=== PATIENT | female | born 1975 | race African-American/Black ===

== ENCOUNTER 2020-07-15 10:58 | Emergency (ER) | payer SELFPAY ==
[~2020-07-15] VITALS: Ht 170.2 cm; Wt 65.9 kg
[2020-07-15 11:36] LABS: BILIRUBIN,URINE NEGATIVE (NEG); CLARITY,URINE CLEAR; COLOR,URINE YELLOW; NITRITE,URINE NEGATIVE (NEG); PH,URINE 5.5 (<5.0-8.0); PROTEIN,URINE NEGATIVE (NEG-TRACE); UROBILINOGEN,URINE 0.2 mg/dL (0.2 mg/dL)
[2020-07-15 11:52] LABS: BACTERIA,URINE FEW /HPF (0-FEW)
[2020-07-15 11:53] LABS: TRICHOMONAS,URINE PRESENT
[2020-07-15 11:53] LABS: BASO % 0 % (0-3); EOS # 0.1 x10^3/uL (0.0-0.7); EOS % 1 % (0-3); HEMATOCRIT 43.3 % (36.0-47.0); HEMOGLOBIN 14.8 g/dL (12.0-15.5); LYMPH # 2.9 x10^3/uL (1.0-4.8); LYMPH % 29 % (24-48); MEAN CORPUSCULAR HEMOGLOBIN 33 pg (25-35); MEAN CORPUSCULAR HGB CONC 34 g/dL (31-37); MEAN CORPUSCULAR VOLUME 95 fL (79-100); MONO # 0.8 x10^3/uL (0.0-1.1); MONO % 8 % (0-9); NEUT # 6.2 x10^3/uL (1.8-7.7); NEUT % 61 % (31-73); PLATELET COUNT 239 x10^3/uL (140-400); RED BLOOD COUNT 4.54 x10^6/uL (3.50-5.40); RED CELL DISTRIBUTION WIDTH 13.5 % (11.5-14.5); WHITE BLOOD COUNT 10.1 x10^3/uL (4.0-11.0)
[2020-07-15 11:54] LABS: CALCIUM 9.2 mg/dL (8.5-10.1); CREATININE 0.7 mg/dL (0.6-1.0); GFR 110.5; POTASSIUM 3.8 mmol/L (3.5-5.1)
[2020-07-15 12:00] LABS: ALBUMIN/GLOBULIN RATIO 0.9 (1.0-1.7); MAGNESIUM 2.2 mg/dL (1.8-2.4); TOTAL BILIRUBIN 0.4 mg/dL (0.2-1.0); TOTAL PROTEIN 8.5 g/dL (6.4-8.2)
[2020-07-15] MEDS ORDERED: fentaNYL PF VIAL 100 MCG/2 ML VIAL IV ONE (12:30)
[2020-07-15] MEDS ORDERED: LIDO:MAALOX 1:1 20 ML SINGLE DOSE. SWSW ONE (12:30)
[2020-07-15] MEDS ORDERED: IV NORMAL SALINE 1000ML BAG 1,000 ML IV ONE (12:30)
[2020-07-15] MEDS ORDERED: ONDANSETRON PF 4 MG/2 ML VIAL. IV ONE (12:30)
[2020-07-15] MEDS ORDERED: hydrALAZINE 20 MG/ML VIAL. ONE (13:10)
[2020-07-15] MEDS ORDERED: LABETALOL 20 MG/4 ML DISP.SYRIN. IVP ONE (13:15)
--- NOTE | 2020-07-15 13:39 | RAD ---
ABDOMEN LTD History: Reason: upper abd pain / Spl. Instructions: / History: Comparison: None. Technique: Transabdominal ultrasound images are obtained of the right upper quadrant. Findings: Visualized pancreas is unremarkable. Liver is normal in echogenicity. Right hepatic lobe measures 17.0 cm. Portal flow is hepatopedal. Gallbladder has an unremarkable appearance. There is a loop of bowel adjacent to the gallbladder with gas degrading adjacent artifact. Common bile duct measures 3 mm in diameter. The right kidney measures 10.9 x 4.9 x 3.9 cm. No hydronephrosis. Visualized portions of the aorta and IVC have normal caliber. IMPRESSION: 1. Unremarkable right upper quadrant ultrasound. Electronically signed by: Mahesh Rasheed DO (07/15/2020 1:36 PM) [id number]
[2020-07-15] MEDS ORDERED: AZITHROMYCIN 250 MG TABLET. PO ONE (14:00)
[2020-07-15] MEDS ORDERED: cefTRIAXone IV Push 1 GM VIAL. IVP ONE (14:00)
[2020-07-15 14:25] VITALS: BP 236/102
[2020-07-15] MEDS ORDERED: CEPH-264 PO (14:29)
[2020-07-15] MEDS ORDERED: METR500T PO (14:29)
--- NOTE | 2020-07-15 14:29 | PHYS DOC ---
Past Medical History Past Medical History: Endometriosis Additional Past Medical Histor: PCOS Past Surgical History: Hysterectomy Smoking Status: Never Smoker Alcohol Use: Rarely General Adult EDM: Chief Complaint: ABDOMINAL PAIN HPI: HPI: Patient is a 44 year old AA female who presents emergency department with complaints of upper abdominal pain that is worse after eating for the last 7 days. She reports that the pain has increased over the last 2 days she has been under a lot of stress recently because her has chronic illnesses and has been in the hospital. She denies any fever, cough, shortness of breath, vomiting, diarrhea, dysuria, hematuria, increased urinary frequency, irregular vaginal discharge, vaginal odor, or vaginal bleeding. Patient reports bilateral low back pain. And nausea at this time. She denies any recent injury, numbness, tingling, or weakness of her extremities. Patient reports a history of high blood pressure but states she has not taken medications for years. She denies any vision changes, or headache. She currently rates her abdominal pain a 10 out of 10 on the pain scale, she denies any alleviating factors or radiation of the pain to her back. Review of Systems: Review of Systems: Constitutional: Denies fever or chills. [] Eyes: Denies change in visual acuity. [] HENT: Denies nasal congestion or sore throat. [] Respiratory: Denies cough or shortness of breath. [] Cardiovascular: Denies chest pain or edema. [] GI: See HPI : Denies dysuria, see HPI. [] Musculoskeletal: Denies joint pain; see HPI. [] Integument: Denies rash. [] Neurologic: Denies headache, focal weakness or sensory changes. [] Psychiatric: Denies depression or anxiety. [] Heart Score: Risk Factors: Risk Factors: DM, Current or recent (<one month) smoker, HTN, HLP, family history of CAD, obesity. Risk Scores: Score 0 - 3: 2.5% MACE over next 6 weeks - Discharge Home Score 4 - 6: 20.3% MACE over next 6 weeks - Admit for Clinical Observation Score 7 - 10: 72.7% MACE over next 6 weeks - Early Invasive Strategies Current Medications: Current Medications Medications (Trade) Dose Ordered Sig/Maryjane Start Time Stop Time Status Last Admin Dose Admin Azithromycin (Zithromax) 1,000 mg 1X ONCE 07/15/20 14:00 07/15/20 14:01 DC 07/15/20 14:11 1,000 MG Ceftriaxone Sodium (Rocephin) 1 gm 1X ONCE 07/15/20 14:00 07/15/20 14:01 DC 07/15/20 14:11 1 GM Fentanyl Citrate (Fentanyl 2ml Vial) 50 mcg 1X ONCE 07/15/20 12:30 07/15/20 12:32 DC 07/15/20 13:15 50 MCG Hydralazine HCl (Apresoline Inj) 20 mg STK-MED ONCE 07/15/20 13:10 07/15/20 13:11 DC Labetalol HCl (Normodyne Iv Push) 10 mg 1X ONCE 07/15/20 13:15 07/15/20 13:16 DC 07/15/20 13:21 10 MG Multi-Ingredient Mouthwash/Gargle (Gi Cocktail) 20 ml 1X ONCE 07/15/20 12:30 07/15/20 12:32 DC 07/15/20 12:39 20 ML Ondansetron HCl (Zofran) 4 mg 1X ONCE 07/15/20 12:30 07/15/20 12:32 DC 07/15/20 12:39 4 MG Sodium Chloride 1,000 ml @ 1,000 mls/hr 1X ONCE 07/15/20 12:30 07/15/20 13:29 DC 07/15/20 12:40 1,000 MLS/HR Allergies: Allergies: Allergies Coded Allergies Type Severity Reaction Last Updated Verified No Known Drug Allergies 07/15/20 No Physical Exam: PE: Constitutional: Well developed, well nourished, no acute distress, non-toxic a ppearance. [] HENT: Normocephalic, atraumatic, bilateral external ears normal, oropharynx moist, no oral exudates, nose normal. [] Eyes: PERRLA, EOMI, conjunctiva normal, no discharge. [] Neck: Normal range of motion, no stridor. [] Cardiovascular:Heart rate regular rhythm, no murmur [] Lungs & Thorax: Bilateral breath sounds clear to auscultation, respirations even and unlabored, no retractions, no respiratory distress Abdomen: Bowel sounds normal, soft, right upper quadrant and epigastric tenderness to palpation, no rebound tenderness, no guarding, no masses, no pulsatile masses, no suprapubic tenderness to palpation [] Skin: Warm, dry, no erythema, no rash. [] Back: Bilateral CVA tenderness. [] Extremities: No cyanosis, ROM intact, no edema. [] Neurologic: Alert and oriented X 3, normal motor function, normal sensory function, no focal deficits noted. [] Psychologic: Affect normal, judgement normal, mood normal. [] Current Patient Data: Labs: Laboratory Tests Test 07/15/20 11:14 07/15/20 11:38 Urine Collection Type Void Urine Color Yellow Urine Clarity Clear Urine pH 5.5 (<5.0-8.0) Urine Specific [place] >=1.030 (1.000-1.030) Urine Protein Negative mg/dL (NEG-TRACE) Urine Glucose (UA) Negative mg/dL (NEG) Urine Ketones (Stick) Trace mg/dL (NEG) Urine Blood Moderate (NEG) Urine Nitrite Negative (NEG) Urine Bilirubin Negative (NEG) Urine Urobilinogen Dipstick 0.2 mg/dL (0.2 mg/dL) Urine Leukocyte Esterase Small (NEG) Urine RBC 11-20 /HPF (0-2) Urine WBC 11-20 /HPF (0-4) Urine Squamous Epithelial Cells Many /LPF Urine Bacteria Few /HPF (0-FEW) Urine Mucus Marked /LPF Urine Trichomonas Present White Blood Count 10.1 x10^3/uL (4.0-11.0) Red Blood Count 4.54 x10^6/uL (3.50-5.40) Hemoglobin 14.8 g/dL (12.0-15.5) Hematocrit 43.3 % (36.0-47.0) Mean Corpuscular Volume 95 fL (79-100) Mean Corpuscular Hemoglobin 33 pg (25-35) Mean Corpuscular Hemoglobin Concent 34 g/dL (31-37) Red Cell Distribution Width 13.5 % (11.5-14.5) Platelet Count 239 x10^3/uL (140-400) Neutrophils (%) (Auto) 61 % (31-73) Lymphocytes (%) (Auto) 29 % (24-48) Monocytes (%) (Auto) 8 % (0-9) Eosinophils (%) (Auto) 1 % (0-3) Basophils (%) (Auto) 0 % (0-3) Neutrophils # (Auto) 6.2 x10^3/uL (1.8-7.7) Lymphocytes # (Auto) 2.9 x10^3/uL (1.0-4.8) Monocytes # (Auto) 0.8 x10^3/uL (0.0-1.1) Eosinophils # (Auto) 0.1 x10^3/uL (0.0-0.7) Basophils # (Auto) 0.0 x10^3/uL (0.0-0.2) Sodium Level 139 mmol/L (136-145) Potassium Level 3.8 mmol/L (3.5-5.1) Chloride Level 103 mmol/L (98-107) Carbon Dioxide Level 23 mmol/L (21-32) Anion Gap 13 (6-14) Blood Urea Nitrogen 9 mg/dL (7-20) Creatinine 0.7 mg/dL (0.6-1.0) Estimated GFR (Cockcroft-Gault) 110.5 BUN/Creatinine Ratio 13 (6-20) Glucose Level 93 mg/dL (70-99) Calcium Level 9.2 mg/dL (8.5-10.1) Magnesium Level 2.2 mg/dL (1.8-2.4) Total Bilirubin 0.4 mg/dL (0.2-1.0) Aspartate Amino Transferase (AST) 16 U/L (15-37) Alanine Aminotransferase (ALT) 15 U/L (14-59) Alkaline Phosphatase 73 U/L (46-116) Total Protein 8.5 g/dL (6.4-8.2) H Albumin 4.0 g/dL (3.4-5.0) Albumin/Globulin Ratio 0.9 (1.0-1.7) L Lipase 93 U/L (73-393) Laboratory Tests 07/15/20 11:38 Laboratory Tests 07/15/20 11:38 Vital Signs: Vital Signs Date Time Temp Pulse Resp B/P (MAP) Pulse Ox O2 Delivery O2 Flow Rate FiO2 07/15/20 13:21 67 222/105 07/15/20 11:21 98.4 18 98 Room Air 98.4 EKG: EKG: [] Radiology/Procedures: Radiology/Procedures: PROCEDURE: ABDOMEN LTD ABDOMEN LTD History: Reason: upper abd pain / Spl. Instructions: / History: Comparison: None. Technique: Transabdominal ultrasound images are obtained of the right upper quadrant. Findings: Visualized pancreas is unremarkable. Liver is normal in echogenicity. Right hepatic lobe measures 17.0 cm. Portal flow is hepatopedal. Gallbladder has an unremarkable appearance. There is a loop of bowel adjacent to the gallbladder with gas degrading adjacent artifact. Common bile duct measures 3 mm in diameter. The right kidney measures 10.9 x 4.9 x 3.9 cm. No hydronephrosis. Visualized portions of the aorta and IVC have normal caliber. IMPRESSION: 1. Unremarkable right upper quadrant ultrasound. [] Course & Med Decision Making: Course & Med Decision Making Pertinent Labs and Imaging studies reviewed. (See chart for details) 44-year-old female presents emergency department with complaints of upper abdominal pain and bilateral low back pain for the last week. Ultrasound of the right upper quadrant revealed no acute findings. CBC, CMP were unremarkable. Urinalysis is concerning for 11-20 white blood cells, trichomonas, few bacteria. I informed the patient the trichomonas is a sexually transmitted infection, I educated her about the probability of a possible gonorrhea and chlamydia infection as well. The patient declined a pelvic exam however I informed her I will treat her for suspected gonorrhea and chlamydia and will test her urine for the gonorrhea and Chlamydia infection. The patient was given 1 g of IV Rocephin and 1 g of p.o. Zithromax for treatment of a suspected also for treatment of urinary tract infection. Patient was instructed to avoid having intercourse until the results of gonorrhea and chlamydia testing are available, patient was notified that these results would not be available for 48 hours. If one or both of these tests is positive, patient needs to refrain from intercourse for approximately 1 week following the treatment of any current partners. I advised the patient to inform her partner of the existing trichomonas infection and told her that any sex partners need to also be tested for gonorrhea chlamydia and trichomonas. She needs to avoid having intercourse with any of these individuals until antibiotics have been complete for 1 week by all parties. While in the emergency department the patient was very hypertensive her blood pressure was in the 220s over the 100s. I gave her 10 mg of labetalol IV which did little for her blood pressure. I provided the patient with a list of primary care providers, I instructed her that she needs to follow-up with a primary care provider for treatment of her uncontrolled hypertension. Advised the patient to return to the emergency room if her symptoms worsen, she developed fever, headache, numbness, tingling, or weakness. Patient verbalized an understanding of home care, medications, follow-up, and return to ED instructions and was in agreement with the plan of care. [] Karenaon Disclaimer: Dragon Disclaimer: This electronic medical record was generated, in whole or in part, using a voice recognition dictation system. Departure Departure Impression: Primary Impression: Contact with and (suspected) exposure to infections with a predominantly sexual mode of transmission Additional Impressions: Trichomonas vaginitis Complicated UTI (urinary tract infection) Abdominal pain, bilateral upper quadrant High blood pressure Qualified Codes: I10 - Essential (primary) hypertension Disposition: HOME, SELF-CARE Condition: STABLE Referrals: NO PCP (PCP) Patient Instructions: Abdominal Pain (Nonspecific), Hypertension, [id number], Sexually Transmitted Disease, [id number], Trichomoniasis-Brief Additional Instructions: Fill the prescriptions and use as directed. Avoid bladder irritants such as caffeine, carbonation, and spicy foods. Increase clear fluids. Recommend that you go to your local health department for comprehensive sexually transmitted disease testing. You have been treated for a suspected gonorrhea and chlamydia. Avoid having intercourse until the results of gonorrhea and chlamydia testing are available, these results will not be available for 48 hours. If one or both of these tests is positive, you need to refrain from intercourse for approxim ately 1 week following the treatment of any current partners. Follow-up with your primary care doctor in 1 to 2 days for further treatment and management of your high blood pressure and reevaluation. Return to ER symptoms worsen, you develop a fever, numbness, tingling, weakness, or headache. Scripts Cephalexin (KEFLEX) 500 Mg Capsule 500 MG PO QID for 7 Days, #28 CAP 0 Refills Prov: CECE BARRIENTOS [employer] 07/15/20 Metronidazole (FLAGYL) 500 Mg Tablet 1 TAB PO BID, #14 TAB 0 Refills Prov: CECE BARRIENTOS [employer] 07/15/20 CECE BARRIENTOS APRN Jul 15, 2020 14:29
== END 2020-07-15 14:58 | disposition home or self-care (01) ==
LOC: ER 10:58
DX: A59.01 Trichomonal vulvovaginitis (principal); N39.0 Urinary tract infection, site not specified; I10 Essential (primary) hypertension; Z20.2 Contact with and (suspected) exposure to infections with a predominantly sexual mode of transmission; E28.2 Polycystic ovarian syndrome; Z90.710 Acquired absence of both cervix and uterus
CPT/HCPCS: 36415; 76705; 80053; 81001; 83690; 83735; 85025; 87086; 87491; 87591; 96361; 96374; 96375; 99284; J0696; J2405; J3010; J3490; J7030

== ENCOUNTER 2021-09-13 14:06 | Emergency (ER) | payer SELFPAY ==
[~2021-09-13 14:06] MED LIST: CEPH-264 PO; METR500T PO
== END 2021-09-13 14:59 | disposition left against medical advice (07) ==
LOC: ER 14:06
DX: R51.9 Headache, unspecified (principal); M54.50 Low back pain, unspecified; Z53.21 Procedure and treatment not carried out due to patient leaving prior to being seen by health care provider